=== PATIENT | male | born 2000 | race Caucasian/White ===

== ENCOUNTER 2019-10-01 21:38 | Emergency (ER) | payer BC, OTHER ==
[~2019-10-01] VITALS: Ht 177.8 cm; Wt 70.3 kg
[2019-10-01 22:25] LABS: ABSOLUTE NEUTROPHILS 4.6 thou/uL (1.4-8.2); BASOPHILS 0.3 % (0.0-2.0); EOSINOPHILS 1.3 % (0.0-3.0); HEMATOCRIT 44.2 % (42.0-52.0); HEMOGLOBIN 15.2 gm/dL (14.0-18.0); LYMPHOCYTES 20.5 % (24.0-44.0); MCH 31.6 pg (26.0-34.0); MCHC 34.4 g/dL (28.0-37.0); MCV 91.8 fL (80.0-100.0); MONOCYTES 8.8 % (1.0-8.0); PLATELET COUNT 189 thou/uL (150-400); POLYS 69.1 % (36.0-66.0); RBC 4.82 mil/uL (4.50-6.00); RDW 12.9 % (10.5-14.5); WBC 6.7 thou/uL (4.0-11.0)
[2019-10-01 22:32] LABS: ANION GAP 9 mmol/L (7-16); BUN 22 mg/dL (7-18); CALCIUM 8.5 mg/dL (8.5-10.1); CHLORIDE 101 mmol/L (98-107); CO2 28 mmol/L (21-32); CREATININE 1.2 mg/dL (0.7-1.3); GLUCOSE 115 mg/dL (74-106); POTASSIUM 3.6 mmol/L (3.5-5.1); SODIUM 138 mmol/L (136-145)
[2019-10-01 22:42] LABS: ALBUMIN 4.4 g/dL (3.4-5.0); SGOT 23 U/L (15-37); SGPT 31 U/L (30-65); TOTAL BILIRUBIN 1.7 mg/dL (0.2-1.0); TOTAL PROTEIN 7.1 g/dL (6.4-8.2); TROPONIN-I <0.06 ng/mL (<0.06)
[2019-10-01 23:31] LABS: URINE BILIRUBIN NEGATIVE (Negative); URINE BLOOD NEGATIVE (Negative); URINE CLARITY CLEAR; URINE COLOR YELLOW; URINE GLUCOSE-RANDOM* NEGATIVE (Negative); URINE KETONES 1+ (Negative); URINE LEUKOCYTES-REFLEX NEGATIVE (Negative); URINE NITRITE-REFLEX NEGATIVE (Negative); URINE PROTEIN (DIPSTICK) NEGATIVE (Negative); URINE SPECIFIC GRAVITY 1.025 (1.005-1.035)
[2019-10-01 23:40] LABS: AMP/METHAMP Negative (Negative); BARBITURATES Negative (Negative); BENZODIAZEPINES Negative (Negative); COCAINE POSITIVE (Negative); METHADONE Negative (Negative); OPIATES Negative (Negative); PCP Negative (Negative)
[2019-10-02 00:09] VITALS: BP 110/57
--- NOTE | 2019-10-02 08:29 | EKG ---
[facility] [place] [address] ELECTROCARDIOGRAM REPORT Name: SHAN GLYNN Room #: DEP [facility]#: [id number] Admission: 10/01/19 Attend Phys: Discharge: 10/02/19 Date of : 89 Report #: [id number] THIS REPORT FOR: cc: FAM - Family physician unknown FAM - Family physician unknown Ric Fox MD [facility] ~ THIS REPORT FOR: //name// [facility] ED Test Date: 2019-10-01 Test Time: 21:46:57 Pat Name: SHAN GLYNN Department: Room: Gender: [employer]ing [employer] Technician: [facility] : 2000 Requested By: Dallas Curry Order Number: [id number] MD: Ric Fox Measurements Intervals [place] Rate: 99 P: 76 MO: 151 QRS: 98 QRSD: 104 T: 8 QT: 350 QTc: 450 Interpretive Statements Sinus rhythm Borderline right axis deviation Nonspecific ST segment abnormality No previous ECG available for comparison Electronically Signed On 10-02-2019 8:27:30 CDT by Ric Fox [email or web address] <ELECTRONICALLY SIGNED> By: Ric Fox MD, FAC 10/02/19826 45 Ric Fox MD, [facility] /EPI
== END 2019-10-02 00:10 | disposition home or self-care (01) ==
LOC: ER 21:38
PROVIDERS: Emergency Medicine
DX: E86.0 Dehydration (principal); R11.2 Nausea with vomiting, unspecified; F12.90 Cannabis use, unspecified, uncomplicated; F15.10 Other stimulant abuse, uncomplicated; F17.210 Nicotine dependence, cigarettes, uncomplicated